=== PATIENT | male | born 1990 | race Caucasian/White ===

== ENCOUNTER 2018-07-12 08:54 | Emergency (ER) | payer OTHER ==
[2018-07-12 10:18] VITALS: BP 115/74
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
== END 2018-07-12 10:16 | disposition home or self-care (01) ==
LOC: ED 08:54
DX: S09.90XA Unspecified injury of head, initial encounter (principal); T14.8XXA Other injury of unspecified body region, initial encounter; R41.0 Disorientation, unspecified; R41.3 Other amnesia; R51 Headache; V49.9XXA Car occupant (driver) (passenger) injured in unspecified traffic accident, initial encounter; Y92.9 Unspecified place or not applicable
CPT/HCPCS: 99282